=== PATIENT | male | born 2000 | race African-American/Black ===

== ENCOUNTER 2023-06-06 19:56 | Emergency (ER) | payer OTHER, SELFPAY ==
[2023-06-06 20:00] VITALS: BP 148/94; PULSE 95; TEMP 37; O2SAT 98; BMI 24.3
--- NOTE | 2023-06-06 20:04 | XR_ITS ---
The [address] [address] Patient Name: NYLA HONEYCUTT MRN: [id number] date: 2000 Sex: M Assigned Patient Location: ER Current Patient Location: ER Accession/Order Number: [id number] Exam Date: 06/06/2023 20:40 Report Date: 06/06/2023 21:36 At the request of: STEVIE AKINS Procedure: XR knee LT 4V EXAM: XR knee LT 4V HISTORY: injury COMPARISON: None. FINDINGS: 4 radiographs of the left knee were obtained. No acute fracture or dislocation. Joint spaces are well-maintained. No joint effusion. Cortical defect to the lateral tibia, likely an anatomic variant. XR/XR knee LT 4V IMPRESSION: No acute fracture or dislocation. Electronically authenticated by: DAVONTE BENITES Date: 06/06/2023 21:36
--- NOTE | 2023-06-06 20:04 | ED_ITS ---
HPI HPI - Extremity Injury (Lower) General Chief Complaint: Extremity Injury, Lower Stated Complaint: BWC - Lower Extremity Injury, Left Knee Time Seen by Provider: 06/06/23 20:04 Source: patient Mode of arrival: walk-in History of Present Illness HPI Narrative: Patient is a 23-year-old male who presents to the emergency department for an injury to the left knee that occurred at work. He states he works at [employer] and planted his foot and twisted his knee in the process. He reports pain diffusely in the anterior, medial and posterior left knee. Pain is worse with range of motion. He has been able to ambulate some. Injury occurred 3 hours ago. He had no direct injury to the knee, falls or other associated injuries. No medications prior to arrival. Related Data Previous Rx's ?Medication ?Instructions ?Recorded ketorolac 10 mg tablet 10 mg PO TID PRN pain #10 tabs 06/06/23 methylprednisolone 4 mg tablets in See Rx Instructions .Route 06/06/23 a dose pack (Medrol (Alonso)) .COMPLEX #21 ea Allergies Allergy/AdvReac Type Severity Reaction Status Date / Time Penicillins Allergy Severe Verified 06/06/23 20:04 Opioid HPI Opioid Management Most Recent Pain and Opioid Data: Last Pain Scale 7 06/06/23 20:27 Last ED Pain Assessment 06/06/23 20:06 Review of Systems ROS Constitutional Denies: fever or chills Ears, nose, mouth, and throat Denies: throat pain or nasal congestion Respiratory Denies: shortness of breath Gastrointestinal Denies: nausea or vomiting Musculoskeletal Reports: extremity pain, joint pain and limited range of motion; Denies: back pain or neck pain Integumentary/Breast Denies: rash Neurological Denies: headache Hematologic/Lymphatic Denies: easy bruising or easy bleeding Exam Narrative Exam Narrative: Gen.: Awake, alert, in no distress Head: Normocephalic, atraumatic ENT: Moist mucous membranes Respiratory: No respiratory distress Extremities:Pain with flexion and extension of the left knee, no laxity of the left patella or obvious deformity. No joint effusion noted. Diffuse tenderness of the anterior and posterior left knee. Psych: Normal mood and affect Neuro: No focal neuro deficit Skin: Warm, dry, intact Constitutional Vital Signs, click to edit/add: Last Vital Signs Temp 98.6 F 06/06/23 20:00 Pulse 95 H 04/11/24 20:00 Resp 18 06/06/23 20:00 BP 148/94 H 06/06/23 20:00 Pulse Ox 98 06/06/23 20:00 O2 Del Method Room Air 06/06/23 20:00 Course Vital Signs Vital signs: Vital Signs Temperature 98.6 F 06/06/23 20:00 Pulse Rate 95 H 06/06/23 20:00 Respiratory Rate 18 06/06/23 20:00 Blood Pressure 148/94 H 06/06/23 20:00 Pulse Oximetry 98 06/06/23 20:00 Oxygen Delivery Method Room Air 06/06/23 20:00 Temperature 98.6 F 06/06/23 20:00 Pulse Rate 95 H 06/06/23 20:00 Respiratory Rate 18 06/06/23 20:00 Blood Pressure 148/94 H 06/06/23 20:00 Pulse Oximetry 98 06/06/23 20:00 Oxygen Delivery Method Room Air 06/06/23 20:00 MDM - Extremity Injury (Lower) MDM Narrative Medical decision making narrative: X-rays with no evidence of fracture or dislocation. Patient placed in an Humberto wrap and knee immobilizer and is neurovascularly intact. Rest, ice, elevate. Follow-up with [facility] and return to the ER if symptoms change or worsen. NSAIDs and Medrol Dosepak given for home. Medical Records Attestation: I reviewed the patient's medical records. Imaging Data xr knee: Attestation: I have reviewed the pertinent imaging results. Radiologist's impression: ITS Impressions Knee X-Ray 06/06/23 20:04 IMPRESSION: No acute fracture or dislocation. Electronically authenticated by: DAVONTE BENITES Date: 06/06/2023 21:36 Discharge Plan Discharge Stand Alone Forms: Portal Instructions Chief Complaint: Extremity Injury, Lower Clinical Impression: Left knee sprain Patient Disposition: Home, Self-Care Time of Disposition Decision: 21:40 Condition: Good Prescriptions / Home Meds: New ketorolac 10 mg tablet 10 mg PO TID PRN (Reason: pain) Qty: 10 0RF methylprednisolone [Medrol (Alonso)] 4 mg tablets,dose pack See Rx Instructions .ROUTE .COMPLEX Qty: 21 0RF Rx Instructions: Taper as directed Print Language: Tamazight Instructions: Knee Sprain (ED) Referrals: [facility] [Outside] - As soon as possible
[2023-06-06] MEDS: KETOROLAC TROMETHAMINE 10 MG TABLET PO (20:27)
[2023-06-06 21:52] VITALS: BP 124/84; PULSE 76; O2SAT 99
== END 2023-06-06 21:56 | disposition home or self-care (01) ==
PROVIDERS: Emergency Provider Emergency Medicine
DX: S83.92XA Sprain of unspecified site of left knee, initial encounter (principal); X50.1XXA Overexertion from prolonged static or awkward postures, initial encounter
CPT/HCPCS: 73564; 99284